=== PATIENT | male | born 1960 | race Two or more races ===

== ENCOUNTER 2025-04-26 04:13 | Emergency (ER) | payer SELFPAY ==
[~2025-04-26] VITALS: Ht 165.1 cm; Wt 61.0 kg
[2025-04-26 04:22] VITALS: O2SAT 100
[2025-04-26 04:26] VITALS: BP 137/98; PULSE 75; RESP 18; TEMP 36.6; O2SAT 99
[2025-04-26] MEDS ORDERED: IBUP-1455 MT (04:40)
== END 2025-04-26 04:46 | disposition home or self-care (01) ==
LOC: ER 04:13
DX: K40.90 Unilateral inguinal hernia, without obstruction or gangrene, not specified as recurrent (principal)
CPT/HCPCS: 99283